=== PATIENT | male | born 1975 | race American Indian/Alaskan Native ===

== ENCOUNTER 2020-12-16 20:45 | Emergency (ER) | payer SELFPAY ==
[2020-12-16] MEDS ORDERED: HYDROmorphone 1 MG/1 ML INJ IV ONE ×2 (21:11→22:35)
[2020-12-16] MEDS ORDERED: KETOROLAC 30 MG/1 ML INJ IV ONE (21:11)
[2020-12-16] MEDS ORDERED: ONDANSETRON 4 MG/2 ML INJ IV ONE (21:11)
[2020-12-16] MEDS ORDERED: SODIUM CHLORIDE 0.9% 500 ML 500 ML IV ONE (21:13)
[2020-12-16 21:24] LABS: Hematocrit 37.8 % (35.5-45.6); Hemoglobin 12.9 gm/dl (11.8-15.2); Mean Corpuscular HGB Conc 34 % (32-34); Mean Corpuscular Volume 85 fl (84-94); Platelet Count 182 K/mm3 (140-440); Red Blood Count 4.46 M/mm3 (3.65-5.03); Red Cell Distribution Width 14.1 % (13.2-15.2)
[2020-12-16 21:43] LABS: Alanine Aminotransferase 23 units/L (7-56); Albumin 4.3 g/dL (3.9-5); BUN/Creatinine Ratio 8; Blood Urea Nitrogen 10 mg/dL (9-20); Calcium 9.4 mg/dL (8.4-10.2); Hemolysis Index 5
[2020-12-16 21:56] LABS: Total Cells Counted 100
--- NOTE | 2020-12-16 21:56 | Cat Scan Report ---
CT ABDOMEN AND PELVIS WITHOUT CONTRAST INDICATION / CLINICAL INFORMATION: right flank pain. TECHNIQUE: Axial CT images were obtained through the abdomen and pelvis without IV contrast. All CT scans at [facility] location are performed using CT dose reduction for ALARA by means of automated exposure control. COMPARISON: None available. FINDINGS: LOWER CHEST: Mild linear atelectasis noted at the lingula. LIVER: No significant abnormality. GALLBLADDER: No significant abnormality. BILE DUCTS: No significant abnormality. PANCREAS: No significant abnormality. SPLEEN: No significant abnormality. ADRENALS: No significant abnormality. RIGHT KIDNEY / URETER: Small 3 mm calcified stone right distal ureter near the UVJ. There is mild dil atation of the ureter on the right. Additional 4 mm calcified right pelvicalyceal stone is noted. LEFT KIDNEY / URETER: No significant abnormality. No calcified stones or hydronephrosis. STOMACH / SMALL BOWEL: No significant abnormality. No mechanical bowel obstruction. COLON: No significant abnormality. APPENDIX: No significant abnormality. PERITONEUM: No free fluid. No free air. No fluid collection. LYMPH NODES: No significant adenopathy. AORTA / ARTERIES: No significant abnormality. IVC / VEINS: No significant abnormality. URINARY BLADDER: No significant abnormality. REPRODUCTIVE ORGANS: No significant abnormality. ADDITIONAL FINDINGS: None. SKELETAL SYSTEM: Mild multilevel degenerative changes are noted of the spine. No aggressive osseous l esions. IMPRESSION: 1. Partially obstructive 3 mm calcified stone right distal ureter near the UVJ with associated mild d ilatation of the right ureter. There is an additional 4 mm calcified stone within the right pelvicaly ceal system. 2. No calcified stones or hydronephrosis of the left renal collecting system or bladder. Signer Name: Atilio Bhandari MD Signed: 12/16/2020 9:52 PM Workstation Name: [id number]
[2020-12-16 21:57] LABS: Basophils % (Manual) 0 % (0.0-1.8)
[2020-12-16 21:58] LABS: Anisocytosis Few; Platelet Estimate Consistent w Auto
--- NOTE | 2020-12-16 22:20 | Emergency Department Report ---
ED Abdominal Pain HPI - General Chief Complaint: Abdominal Pain Stated Complaint: LOWER ABD PAIN Time Seen by Provider: 12/16/20 21:09 Source: patient Mode of arrival: Ambulatory Limitations: No Limitations - History of Present Illness Initial Comments: Patient is a 45-year-old F [place] male who is presenting with right abdominal pain. States this is the center anterior abdominal pain that is a 8 out of 10 in severity. There is some radiation to the right groin. States it feels as though something has his testicles in a vice client liaison although there is no pain with actual palpation of the testicle. Mild nausea with no vomiting. Denies diarrhea. Pain started approximately 2 hours prior to his arrival. Severity scale (0 -10): 10 - Related Data Previous Rx's Medication Instructions Recorded Last Taken Type Ciprofloxacin HCl [Ciprofloxacin 500 mg PO Q12HR #14 tab 12/16/20 Unknown Rx TAB] HYDROcodone/APAP 5-325 [[place] 1 each PO Q6HR PRN #14 tablet 12/16/20 Unknown Rx 5/325] Ketorolac [Toradol] 10 mg PO Q6H PRN #12 tablet 12/16/20 Unknown Rx Ondansetron [Zofran Odt] 4 mg PO Q8HR #10 tab.rapdis 12/16/20 Unknown Rx Tamsulosin [Flomax] 0.4 mg PO QDAY #7 cap 12/16/20 Unknown Rx Allergies Allergy/AdvReac Type Severity Reaction Status Date / Time shellfish derived Allergy Hives Verified 12/16/20 20:59 ED Review of Systems ROS: Stated complaint: LOWER ABD PAIN Other details as noted in HPI Comment: All other systems reviewed and negative ED Past Medical Hx - Past Medical History Previous Medical History?: Yes Hx Asthma: Yes Additional medical history: Heart Murmur - Surgical History Past Surgical History?: No - Social History Smoking Status: Never Smoker Substance Use Type: None - Medications Home Medications: Home Medications Medication Instructions Recorded Confirmed Last Taken Type Ciprofloxacin HCl [Ciprofloxacin 500 mg PO Q12HR #14 tab 12/16/20 Unknown Rx TAB] HYDROcodone/APAP 5-325 [[place] 1 each PO Q6HR PRN #14 tablet 12/16/20 Unknown Rx 5/325] Ketorolac [Toradol] 10 mg PO Q6H PRN #12 tablet 12/16/20 Unknown Rx Ondansetron [Zofran Odt] 4 mg PO Q8HR #10 tab.rapdis 12/16/20 Unknown Rx Tamsulosin [Flomax] 0.4 mg PO QDAY #7 cap 12/16/20 Unknown Rx ED Physical Exam - General Limitations: No Limitations General appearance: alert, in distress - Head Head exam: Present: atraumatic, normocephalic - Eye Eye exam: Present: normal appearance - ENT ENT exam: Present: mucous membranes moist - Neck Neck exam: Present: normal inspection - Respiratory Respiratory exam: Present: normal lung sounds bilaterally. Absent: respiratory distress, wheezes, rales, rhonchi - Cardiovascular Cardiovascular Exam: Present: regular rate, normal rhythm, normal heart sounds. Absent: systolic murmur, diastolic murmur, rubs, gallop - GI/Abdominal GI/Abdominal exam: Present: soft, tenderness (r sided), normal bowel sounds. Absent: distended, guarding, rebound, rigid - Rectal Rectal exam: Present: deferred - exam: Absent: scrotal swelling - Extremities Exam Extremities exam: Present: normal inspection - Back Exam Back exam: Present: normal inspection - Neurological Exam Neurological exam: Present: alert, oriented X3 - Psychiatric Psychiatric exam: Present: normal affect, normal mood - Skin Skin exam: Present: warm, dry, intact, normal color. Absent: rash ED Course Vital Signs 12/16/20 20:51 Temperature 98.5 F Pulse Rate 67 Respiratory 18 Rate Blood Pressure 138/75 O2 Sat by Pulse 99 Oximetry ED Medical Decision Making - Lab Data Result diagrams: 12/16/20 21:12 12/16/20 21:12 - Radiology Data [facility] [address] [place] [address] Cat Scan Report Signed Patient: LUZ FAJARDO MR#: [id number] : 1975 Acct:[id number] Age/Sex: 45 / M ADM Date: 12/16/20 Loc: ED Attending Dr: Ordering Physician: ESSIE MAI MD Date of Service: 12/16/20 Procedure(s): CT abdomen pelvis wo con Accession Number(s): [id number] cc: ESSIE MAI MD CT ABDOMEN AND PELVIS WITHOUT CONTRAST INDICATION / CLINICAL INFORMATION: right flank pain. TECHNIQUE: Axial CT images were obtained through the abdomen and pelvis without IV contrast. All CT scans at this location are performed using CT dose reduction for ALARA by means of automated exposure control. COMPARISON: None available. FINDINGS: LOWER CHEST: Mild linear atelectasis noted at the lingula. LIVER: No significant abnormality. GALLBLADDER: No significant abnormality. BILE DUCTS: No significant abnormality. PANCREAS: No significant abnormality. SPLEEN: No significant abnormality. ADRENALS: No significant abnormality. RIGHT KIDNEY / URETER: Small 3 mm calcified stone right distal ureter near the UVJ. There is mild dilatation of the ureter on the right. Additional 4 mm calcified right pelvicalyceal stone is noted. LEFT KIDNEY / URETER: No significant abnormality. No calcified stones or hydronephrosis. STOMACH / SMALL BOWEL: No significant abnormality. No mechanical bowel obstruction. COLON: No significant abnormality. APPENDIX: No significant abnormality. PERITONEUM: No free fluid. No free air. No fluid collection. LYMPH NODES: No significant adenopathy. AORTA / ARTERIES: No significant abnormality. IVC / VEINS: No significant abnormality. URINARY BLADDER: No significant abnormality. REPRODUCTIVE ORGANS: No significant abnormality. ADDITIONAL FINDINGS: None. SKELETAL SYSTEM: Mild multilevel degenerative changes are noted of the spine. No aggressive osseous lesions. IMPRESSION: 1. Partially obstructive 3 mm calcified stone right distal ureter near the UVJ with associated mild dilatation of the right ureter. There is an additional 4 mm calcified stone within the right pelvicalyceal system. 2. No calcified stones or hydronephrosis of the left renal collecting system or bladder. Signer Name: Atilio Ramirez MD Signed: 12/16/2020 9:52 PM Workstation Name: [id number] Transcribed By: Dictated By: ATILIO RAMIREZ Electronically Authenticated By: ATILIO RAMIREZ Signed Date/Time: 12/16/202151 - Medical Decision Making Patient's pain improved after Dilaudid Toradol and Zofran. Patient does have a partially obstructing stone in the right ureter. Be discharged home. Patient be given medication for symptomatic relief and follow-up with urology Critical care attestation.: If time is entered above; I have spent that time in minutes in the direct care of this critically ill patient, excluding procedure time. ED Disposition Clinical Impression: Hydronephrosis Qualifiers: Hydronephrosis type: with ureteral calculous obstruction Qualified Code(s): N13.2 - Hydronephrosis with renal and ureteral calculous obstruction Disposition: TO HOME OR SELFCARE Is pt being admited?: No Does the pt Need Aspirin: No Condition: Stable Instructions: Hydronephrosis, Kidney Stones, [id number] Referrals: KOBE LAY MD [Staff Physician] - 3-5 Days Time of Disposition: 22:21
[2020-12-16 22:35] VITALS: BP 132/82
== END 2020-12-16 22:44 | disposition home or self-care (01) ==
LOC: ED 20:45
DX: N13.30 Unspecified hydronephrosis (principal); J45.909 Unspecified asthma, uncomplicated; Z79.899 Other long term (current) drug therapy; Z91.013 Allergy to seafood
CPT/HCPCS: 36415; 74176; 80053; 85007; 85025; 96361; 96374; 96375; 99284; J1170; J1885; J2405; J7040